=== PATIENT | male | born 2005 | race Caucasian/White ===

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

== ENCOUNTER 2024-04-28 18:44 | Outpatient (CLI) | payer BC, SELFPAY ==
--- NOTE | 2024-04-28 18:30 | RT.EKG_ITS ---
APPROVED REPORT Exam: Resting ECG Reason for Exam: palpitations Patient Location: O HR:91 bpm ECG Measurements Heart Rate 91 AXIS MI 138 P 78 QRSd 91 QRS 62 QT 346 T 51 QTc 426 Conclusion Sinus rhythm...normal P axis, V-rate 50- 99 Normal Electrocardiogram
== END 2024-04-28 18:45 | disposition home or self-care (01) ==
LOC: DI.CM 18:45
PROVIDERS: PCP Pediatrics; Visit Provider Physician Assistant
DX: R00.2 Palpitations (principal)
CPT/HCPCS: 93010

== ENCOUNTER 2024-04-28 19:25 | Emergency (ER) | payer BC, SELFPAY ==
[2024-04-28] VITALS (20 sets, daily range): BP systolic 106–145; BP diastolic 63–95; PULSE 71–101; RESP 11–24; TEMP 36.8; O2SAT 87–100
--- NOTE | 2024-04-28 19:30 | RT.EKG_ITS ---
APPROVED REPORT Exam: Resting ECG Reason for Exam: chest pain Patient Location: E HR:85 bpm ECG Measurements Heart Rate 85 AXIS DE 134 P 77 QRSd 93 QRS 71 QT 345 T 56 QTc 412 Conclusion Sinus rhythm...normal P axis, V-rate 60- 99 Atrial premature complex...SV complex w/ short R-R interval No STEMI
--- NOTE | 2024-04-28 19:40 | ED.GENADUL_ITS ---
Discharge Plan Disposition Patient Disposition: Home Condition: Stable Discharge Details Clinical Impression: Chest pain of uncertain etiology Primary Care Provider: Laron Whalen ED Provider: Laron Byrne Home Meds and New Rx's Prescriptions: No Action No Known Home Meds Discharge Instructions Instructions: Chest Pain, Adult ED Additional Instructions: You were seen in the emergency department for your chest pain of uncertain cause, this is not your heart, your cardiac enzymes are negative, there is no evidence of infection, your EKG is normal, chest x-ray shows no acute abnormality, please follow-up with your primary care provider, this may be an element of anxiety. Please return to the emergency department for severe increase in chest pain, or other emergent concerns. Referrals: Laron Whalen MD [Primary Care Provider] - Discharge Data Discharge Date/Time-TO BE ENTERED AT DEPARTURE: 04/28/24 21:10 HPI General Date/Time Provider Initiated Documentation: 04/28/24 19:27 . HPI Narrative: 19 year-old male presents to ED today by POV/ambulating with a chief complaint of palpitations, chest pressure, and shortness of breath with onset 24 hours ago. Quality described as generalized chest pressure, cough, nausea without vomiting, denies fever, no radiation to dizziness, near syncope, profound weakness. Severity is described as mild to moderate. Palliating factors include nothing specific attempted. Provoking factors include nothing specific. Events leading up to the incident/Associated Symptoms: Patient denies any FHx of early cardiac disease. Patient not anticoagulated. Related Data Home Medications ?Medication ?Instructions ?Recorded ?Confirmed Unknown [No Known Home Meds] 03/16/23 04/28/24 Allergies Allergy/AdvReac Type Severity Reaction Status Date / Time No Known Allergies Allergy Verified 04/28/24 19:31 General Stated Complaint: RespSymp TAYLOR: 3 Review of Systems All systems reviewed & are unremarkable except as noted in HPI and below Exam Narrative Exam Narrative: GENERAL APPEARANCE: Well-nourished, non-toxic, awake and alert, atraumatic, no acute distress. SKIN: Warm, pink, dry, intact, without rashes/lesions/ulcerations. HEAD: Normocephalic, atraumatic, normal hair distribution for gender/age. EYES: Normal conjunctiva, no exudates on lids/lashes. ENT: Nares patent, no circumoral cyanosis, no facial swelling NECK: Supple, trachea midline, painless cervical ROM. LUNGS/CHEST: Lungs CTA bilaterally- no rhonchi/rales/wheezes diffusely, non-lab ored respirations, normal A/P diameter, symmetrical expansion, no chest wall deformity HEART (CV/PV): Regular rate and rhythm without murmur, no peripheral edema, no JVD. ABDOMEN: Soft, non-distended, no guarding. MSK: Normal ROM, no swelling/deformity to bilateral UEs or LEs, moving all extremities without weakness, no cyanosis, spine midline without tenderness, normal curvature. NEURO: Mental Status AAOx4 - alert to person, place, time, events No facial droop, no forehead involvement. Motor: No focal weakness - strength 5/5 in bilateral UEs and LEs, proximal and distal, symmetric. Sensory: sensation intact to light touch globally. Gait normal: patient ambulated without ataxia into ED room. PSYCH: euthymic, cooperative, pleasant, appropriate speech Course Vital Signs Vital signs: Vital Signs Temperature 36.8 C 04/28/24 19:28 Pulse 101 H 04/28/24 19:28 Respiratory Rate 16 04/28/24 19:28 Blood Pressure 129/82 04/28/24 19:28 Pulse Oximetry 99 04/28/24 19:28 Temperature 36.8 C 04/28/24 19:28 Temperature Source Oral 04/28/24 19:28 Pulse 101 H 04/28/24 19:28 Respiratory Rate 16 04/28/24 19:28 Blood Pressure 129/82 04/28/24 19:28 Blood Pressure Position Sitting 04/28/24 19:28 Pulse Oximetry 99 04/28/24 19:28 Oxygen Delivery Method Room Air 04/28/24 19:28 Oxygen Flow Rate 0 04/28/24 19:28 Pain Level 6 04/28/24 19:28 Medical Decision Making This dictation utilizes [id number] dictation software and may contain unedited grammatical errors. 19 year-old male presents to ED today by POV/ambulating with a chief complaint of palpitations, chest pressure, and shortness of breath with onset 24 hours ago. Quality described as generalized chest pressure, cough, nausea without vomiting, denies fever, no radiation to dizziness, near syncope, profound weakness. Severity is described as mild to moderate. Palliating factors include nothing specific attempted. Provoking factors include nothing specific. Events leading up to the incident/Associated Symptoms: Patient denies any FHx of early cardiac disease. Patients' medical history: Noncontributory. Family and social history: Noncontributory. Pertinent exam findings / vital signs include benign cardiopulmonary exam, nontoxic. Differential / pathologies of concern include anxiety, costochondritis, gastritis, unlikely ACS. Diagnostic studies of: -CBC, CMP, magnesium, troponin, lipase, TSH, COVID/flu/RSV PCR, chest x-ray, EKG. -lab workup negative -EKG NSR without ischemic changes Interventions of: -None. ED Course/Assessment/Plan: 19-year-old male presents with some chest pressure and cough referred by express care for cardiac workup. Cardiac workup is negative with reliable onset, he has no evidence of pneumonia or dynamic EKG changes, his cardiac enzymes are negative, no evidence of COVID or flu, counseled on likely element of anxiety, strict return criteria for worsening. Findings not consistent with ACS, PNA. Disposition of Chest Pain of Uncertain Etiology. Patient verbalized understanding of the plan and return to ED criteria and en gaged in shared decision making. Medical Records Medical records reviewed: Yes I reviewed the patient's medical records. Imaging Data Radiologic Study: Attestation: I personally reviewed and interpreted this imaging study as follows: Imaging: X-Ray Radiologist's impression: Exam: XR Chest Exam date and time: 04/28/2024 8:58 PM Age: 19 years old Clinical indication: Left-sided; L sided chest pain TECHNIQUE: Imaging protocol: Radiologic exam of the chest. Views: 2 views. COMPARISON: CR XR ABDOMEN FLAT PLATE 04/22/2022 10:14 AM FINDINGS: Lungs: Unremarkable. No consolidation. Pleural spaces: Unremarkable. No pleural effusion. No pneumothorax. Heart/Mediastinum: Unremarkable. No cardiomegaly. Bones/joints: Unremarkable. IMPRESSION: No acute findings. Dictated and Authenticated by: Michelet Rizvi MD. Lab Data Lab results reviewed: Yes I reviewed the patient's lab results. Labs: Laboratory Tests Range/Units 04/28/24 04/28/24 19:35 20:01 WBC (4.4-10.8) 10^3/uL 6.47 RBC (4.36-5.78) 10^6/uL 5.00 Hgb (13.5-17.5) g/dL 14.6 Hct (40.0-50.0) % 43.9 MCV (80-95) fL 88 MCH (27.0-33.0) pg 29.2 MCHC (32.0-36.0) % 33.3 RDW (11.8-14.1) % 12.2 Plt Count (130-400) 10^3/uL 269 MPV (8.0-11.0) fL 8.8 Immature Gran % % 0.2 Neutrophils % % 67.4 Lymphocytes % % 24.9 Monocytes % % 7.0 Eosinophils % % 0.3 Basophils % % 0.2 Nucleated RBC % (0.0-0.3) % 0.0 Absolute Neutrophils (1.2-6.7) 10^3/uL 4.37 Absolute Lymphocytes (1.2-3.4) 10^3/uL 1.61 Absolute Monocytes (0.1-0.8) 10^3/uL 0.45 Absolute Eosinophils (0.0-0.7) 10^3/uL 0.02 Absolute Basophils (0.0-0.2) 10^3/uL 0.01 Sodium (136-145) mmol/L 143 Potassium (3.5-5.1) mmol/L 4.0 Chloride (98-107) mmol/L 107 Carbon Dioxide (21.0-32.0) mmol/L 27.9 Anion Gap (3-11) mmol/L 8.1 BUN (7-18) mg/dL 12 Creatinine (0.70-1.30) mg/dL 1.2 Est GFR (CKD-EPI 2020) (mL/min/1.73m2) 88.79 Glucose (74-106) mg/dL 95 Calcium (8.5-10.1) mg/dL 9.7 Magnesium (1.8-2.4) mg/dL 1.9 Total Bilirubin (0.2-1.0) mg/dL 0.39 AST (15-37) U/L 13 L ALT (16-63) U/L 29 Alkaline Phosphatase (46-116) U/L 76 Troponin I (<or=76) ng/L 4 Total Protein (6.4-8.2) g/dL 7.4 Albumin (3.4-5.0) g/dL 4.2 Lipase (<78) U/L 19 TSH (0.36-3.74) uIU/mL 1.49 COVID-19 Source Nasopharynx SARS-CoV-2 (PCR) (Negative) Negative Influenza Type A (PCR) (Negative) Negative Influenza Type B (PCR) (Negative) Negative RSV (PCR) (Negative) Negative Quality:SDOH Health Related Social Needs: No Data to Display PFSH All Active Problems (Updated 04/28/24 @ 20:52 by MAL Hazel) Chest pain of uncertain etiology (Acute) Chronic abdominal pain (Acute) Initially loose stool and hematochezia. Some weight loss. Normal labs. Possible constipation contribution. GI eval pending Routine child health exam (Acute 02/03/16) Normal weight, pediatric, BMI 5th to 84th percentile for age (Acute 02/04/17) Learning difficulty (Acute 02/26/16) IEP at [facility] Medical History Fracture of left ulna, shaft (12/14/20) Eustachian tube dysfunction Surgical History Tooth extraction Family History Mother No problems noted. Grandparent Substance abuse Heart disease Hyperlipidemia Neoplasm Dairy product intolerance MGM Social History Smoking/Tobacco Use Status: Never Smoking risk assessment performed?: Yes Alcohol Intake: never Drug use: Current Sobriety Substance use type: does not use Details: quit marijuana about 1 year ago 04/28/24 Housing: house Communication Needs: None Education Level: high school Details: [employer] 12th grade Pets and animals: Yes (1 dog) Pets and animals: dog(s) Current gender identity: male Do you feel safe at home: Yes Do you feel safe in your relationship?: Yes PAWSS Have you Been Recently Intoxicated or Drunk Within the Last 30 days?: No Have you Ever Experienced Previous Episodes of Alcohol Withdrawal?: No Have you ever Experienced Withdrawal Seizures?: No Have you ever Experienced Delirium Tremens(DT)s?: No Have you ever undergone Alcohol Rehabilitation Treatment (i.e, inpt ot outpatient treatment programs)?: No Have you ever Experienced Blackouts?: No Have you ever Combined Alcohol with other Downers within the last 90 days?: No Have you ever Combined Alcohol with any other Substance of Abuse during the last 90 days?: No Positive Blood Alcohol level on Presentation? [PCS.BAL]: No Evidence of Increased Autonomic Activity (i.e. HR>120, tremor, sweating, agitation, nausea)?: No Result: 0
[2024-04-28 20:14] LABS: Abs Immature Grans 0.01 10^3/uL (0.0-0.06); Absolute Basophil Count 0.01 10^3/uL (0.0-0.2); Absolute Eosinophil Count 0.02 10^3/uL (0.0-0.7); Absolute Lymphocyte Count 1.61 10^3/uL (1.2-3.4); Absolute Monocyte Count 0.45 10^3/uL (0.1-0.8); Absolute Neutrophil Count 4.37 10^3/uL (1.2-6.7); Basophils % 0.2 %; Eosinophils % 0.3 %; HCT 43.9 % (40.0-50.0); HGB 14.6 g/dL (13.5-17.5); Immature Grans % 0.2 %; Lymphocytes % 24.9 %; MCH 29.2 pg (27.0-33.0); MCHC 33.3 % (32.0-36.0); MCV 88 fL (80-95); MPV 8.8 fL (8.0-11.0); Neutrophils % 67.4 %; Platelet Count 269 10^3/uL (130-400); RDW 12.2 % (11.8-14.1); RDW-SD 39.3 fL; WBC 6.47 10^3/uL (4.4-10.8)
[2024-04-28 20:30] LABS: COVID-19 PCR Negative (Negative); Influenza A PCR Negative (Negative); Influenza B PCR Negative (Negative); RSV PCR Negative (Negative)
[2024-04-28 20:32] LABS: ALT 29 U/L (16-63); AST 13 U/L (15-37); Albumin 4.2 g/dL (3.4-5.0); Alkaline Phosphatase 76 U/L (46-116); Anion Gap 8.1 mmol/L (3-11); BUN 12 mg/dL (7-18); Bilirubin, Total 0.39 mg/dL (0.2-1.0); CO2 27.9 mmol/L (21.0-32.0); CREATININE 1.2 mg/dL (0.70-1.30); Calcium 9.7 mg/dL (8.5-10.1); Chloride 107 mmol/L (98-107); Estimated GFR 88.79 (mL/min/1.73m2); Glucose 95 mg/dL (74-106); Lipase 19 U/L (<78); Magnesium 1.9 mg/dL (1.8-2.4); Sodium 143 mmol/L (136-145); TSH (W/Ref FT4) 1.49 uIU/mL (0.36-3.74); Total Protein 7.4 g/dL (6.4-8.2); Troponin I 4 ng/L (<or=76)
[2024-04-28 20:32] LABS: Source Nasopharynx
--- NOTE | 2024-04-28 20:45 | DI.RAD_ITS ---
Exam(s) XR CHEST 2V PA LATERAL EXAM: XR CHEST 2V PA LATERAL CLINICAL HISTORY: chest pain TECHNIQUE: 2D digital imaging was performed of the chest. Two images were obtained. PA and lateral views were obtained. COMPARISON: CR RIGHT SHOULDER COMPLETE from 05/01/2015 FINDINGS: MEDIASTINUM: Normal. HEART: Normal. PULMONARY VASCULATURE: Normal. LUNGS: Clear. PLEURAL SPACE: No pleural effusion or pneumothorax. BONE:Within normal limits for the patient's age. OTHER FINDINGS:Normal. IMPRESSION: No acute pulmonary findings. DATA REPOSITORY: RADIATION DOSE DELIVERED:
--- NOTE | 2024-04-28 21:46 | DI.VRAD_ITS ---
PROCEDURE INFORMATION: Exam: XR Chest Exam date and time: 04/28/2024 8:58 PM Age: 19 years old Clinical indication: Left-sided; L sided chest pain TECHNIQUE: Imaging protocol: Radiologic exam of the chest. Views: 2 views. COMPARISON: CR XR ABDOMEN FLAT PLATE 04/22/2022 10:14 AM FINDINGS: Lungs: Unremarkable. No consolidation. Pleural spaces: Unremarkable. No pleural effusion. No pneumothorax. Heart/Mediastinum: Unremarkable. No cardiomegaly. Bones/joints: Unremarkable. IMPRESSION: No acute findings. Dictated and Authenticated by: Michelet Rizvi MD. Orderin Caty Larry MD
== END 2024-04-28 21:10 | disposition home or self-care (01) ==
PROVIDERS: Emergency Provider Physician Assistant; PCP Pediatrics
DX: R07.89 Other chest pain (principal)
CPT/HCPCS: 36415; 80053; 83690; 87637; 93005; 99285; 71046; 83735; 84443; 84484; 85025; 93010; 99284